=== PATIENT | male | born 1990 | race Caucasian/White ===

== ENCOUNTER 2022-12-15 06:27 | Day surgery (SDC) | payer OTHER ==
[~2022-12-15] VITALS: Ht 170.2 cm; Wt 95.0 kg
[~2022-12-15 06:27] MED LIST: DEXEDRINE15 MG PO; LIPITOR10 MG PO; PROZAC40 MG PO
[2022-12-15] MEDS ORDERED: ALEVE220 M1 PO (06:41)
[2022-12-15] MEDS ORDERED: IBUPROFEN200 M1 PO (06:42)
[2022-12-15] MEDS ORDERED: DICLOFENAC SODI75 MG PO (08:34)
[2022-12-15] MEDS ORDERED: HYDROCODON-ACE1 EA10 PO (08:34)
--- NOTE | 2022-12-15 08:37 | NUR ---
12/15/22 0837 Gail Hamilton 0830 PT ARRIVED TO PACU WITH ORAL AIRWAY IN PLACE, JAW THRUST USED TO MAINTAIN AIRWAY. RESP EVEN AND UNLABORED. 0835 PT WAKES AND OPENS HIS EYES, ORAL AIRWAY REMOVED. PT DENIES PAIN AND NAUSEA. PT PULLS OFF O2 MASK.
--- NOTE | 2022-12-15 09:19 | NUR ---
LE 0850 PATIENT BACK TO ROOM 4. REPORT RECIEVED FROM MARK ZARATE. PATIENT ALERT AND ORIENTED. BREATHING EQUAL AND UNLABORED. OXYGEN SATURATIONS 90% ON ROOM AIR. PATIENT SURGICAL SITE CLEAN, DRY AND INTACT. IVF INFUSING. SCD'S ON. ICE APPLIED AND ELEVATED OPERATIVE LEG. CALL LIGHT WITHIN REACH NO FUTHER NEEDS. NO QUESTIONS AT THIS TIME.
--- NOTE | 2022-12-15 09:21 | NUR ---
LE 0912 PATIENT GIVEN PRN PAIN MEDICINE. PATIENT ABLE TO EAT AND DRINK DENIES FEELING NAUSEATED. AT BEDSIDE. CALL LIGHT WITHIN REACH NO FUTHER NEEDS. NO QUESTIONS AT THIS TIME.
--- NOTE | 2022-12-15 09:25 | OR ---
[facility] [address] [place], [place] [address] Signed DATE OF OPERATION: 12/15/2022 SURGEON: Serafin Herrera MD PREOPERATIVE DIAGNOSIS: Medial and lateral meniscus tears, left knee. POSTOPERATIVE DIAGNOSES: 1. Medial and lateral meniscus tears, left knee. 2. ACL tear. PROCEDURE PERFORMED: Left knee arthroscopy with debridement medial and lateral meniscus. NATURAL GAS SHOTHOLE DRILLER: None. ANESTHESIA: General. BLOOD LOSS: 75 mL. BRIEF HISTORY: You is a 32-year-old gentleman with pain and locking in his knee. MRI was consistent with the above. Risks and benefits of operative treatment were discussed with him and he elected to proceed. DESCRIPTION OF PROCEDURE: Once consent was obtained, he was taken to the operating room. After adequate anesthesia, he was placed on the operating room table. The right leg was flexed, abducted and externally rotated on a well-padded leg villanueva. The left leg was placed in well-padded proximal thigh leg villanueva and prepped and draped in a standard sterile fashion. The portal sites were then injected with 0.25% Marcaine with epinephrine. Standard inferolateral and superolateral portals were made and the scope was introduced. ARTHROSCOPIC FINDINGS: Moderate synovitis was noted throughout the knee particular in the medial gutter. The patella was noted to track well with no significant chondromalacia. Medial and lateral gutters were clear. ACL was noted to be absent. PCL was intact. Exam under anesthesia Electronically Signed By: SERAFIN HERRERA MD 12/15/22 0925 PATIENT NAME: YOU ARGUETA OPERATIVE REPORT DATE OF : 88 REPORT #: [id number] PHYSICIAN: SERAFIN HERRERA MD PCP: PRADEEP TRAN PA-C REPORT IS CONFIDENTIAL AND NOT TO BE RELEASED WITHOUT AUTHORIZATION [facility] [address] [place], [place] [address] Signed showed a negative pivot shift and very minor anterior drawer and Dory. The lateral meniscus showed a radial tear in the midbody laterally. Medial meniscus showed a complex tear extending from the posterior horn all the way around to the anterior medial corner. There were degenerative signs throughout. There was grade 3 chondromalacia of the medial femoral condyle with a large flap anteriorly based. DESCRIPTION OF OPERATION: Standard inferomedial portal was established after localization using a spinal needle. The straight and curved biters were used to trim up both meniscus tears. The shaver was then used to shave down the flaps on the medial femoral condyle and to smooth the menisci and remove any protrusions. This was then feathered out anteriorly. The medial meniscus had probably the 20% remaining at the end of the procedure. The lateral meniscus was greater than 80%. The scope was then withdrawn. Portals were closed with 3-0 nylon and the knee was injected with 60 mg of Toradol. The wound was dressed with Adaptic, ABD, and Steve wrap. He tolerated the procedure well. All sponge, needle, and instrument counts were correct. Serafin Herrera MD BA/KATTYL /[id number] Copies: ~ Electronically Signed By: SERAFIN HERRERA MD 12/15/22 0925 PATIENT NAME: KENDALLYOU NORWOOD OPERATIVE REPORT DATE OF : 88 REPORT #: [id number] PHYSICIAN: SERAFIN HERRERA MD PCP: PRADEEP TRAN PA-C REPORT IS CONFIDENTIAL AND NOT TO BE RELEASED WITHOUT AUTHORIZATION
--- NOTE | 2022-12-15 09:39 | NUR ---
0920 PATIENT STATES PAIN IMPROVED AND IS TOLERABLE. PATIENT ABLE TO AMBULATE TO THE RESTROOM VOIDED. TOLERATED IT WELL. PATIENT BACK TO BED. EXTERMITY ELEVATED. ICE APPLIED. CALL LIGHT WITHIN REACH NO FUTHER NEEDS. NO QUESTIONS AT THIS TIME. AT BEDSIDE.
--- NOTE | 2022-12-15 10:09 | NUR ---
0950 PATIENT HAS MET DISCHARGE CRITERIA. PATIENT GIVEN INSTRUCTIONS AND UNDERSTOOD. NO QUESTIONS FROM HIM AND HIS AT THIS TIME. PATIENT DRESSED SELF AND TOLERATED IT WELL. PATIENT WAS WHEELED OUT OF FACILITY TO PRIVATE AUTO. NO FUTHER NEEDS.
--- NOTE | 2022-12-15 10:16 | NUR ---
PT ALERT, ORIENTED AND SUPPORTED BY HIS SONIYA. SHE WILL GO HOME AND RETURN FOR DC. ALL QUESTIONS ASKED ANSWERED. PT DECLINED PRAYER,
== END 2022-12-15 09:50 | disposition home or self-care (01) ==
LOC: DS 06:27
PROVIDERS: ATTEND Specialist
PROC: 0SBD4ZZ Excision of Left Knee Joint, Percutaneous Endoscopic Approach (ICD-10-PCS; 2022-12-15)
PROC: 0SBD4ZZ Excision of Left Knee Joint, Percutaneous Endoscopic Approach (ICD-10-PCS; principal; 2022-12-15 08:15)
DX: S83.282A Other tear of lateral meniscus, current injury, left knee, initial encounter (principal); S83.232A Complex tear of medial meniscus, current injury, left knee, initial encounter; S83.512A Sprain of anterior cruciate ligament of left knee, initial encounter; X58.XXXA Exposure to other specified factors, initial encounter
CPT/HCPCS: J0690; J1100; J1885; J2250; J2405; J2704; J2765; J3010; J7121